=== PATIENT | female | born 1995 | race Caucasian/White ===

== ENCOUNTER 2019-04-14 00:49 | Emergency (ER) | payer BC ==
[~2019-04-14] VITALS: Ht 152.4 cm; Wt 78.0 kg
[2019-04-14 00:57] VITALS: Ht 152.4 cm; Wt 78.0 kg
[2019-04-14 02:17] VITALS: BP 125/90
== END 2019-04-14 02:17 | disposition home or self-care (01) ==
LOC: ED 00:49
DX: S83.91XA Sprain of unspecified site of right knee, initial encounter (principal); V00.311A Fall from snowboard, initial encounter; Y93.23 Activity, snow (alpine) (downhill) skiing, snowboarding, sledding, tobogganing and snow tubing; Y92.89 Other specified places as the place of occurrence of the external cause; Y99.8 Other external cause status